=== PATIENT | female | born 1940 | race Caucasian/White ===

== ENCOUNTER 2024-06-07 13:17 | Observation (INO) | payer OTHER ==
[2024-06-07 15:12] LABS: ABSOLUTE IMMATURE GRANULOCYTES 0.05 x10^3/uL (0.0-0.031); BASOPHILS # 0.03 x10^3/uL (0.01-0.08); EOSINOPHILS # 0.06 x10^3/uL (0.04-0.36); HEMATOCRIT 31.6 % (34.1-44.9); HEMOGLOBIN 9.7 g/dL (11.2-15.7); MCHC 30.7 g/dl (32.2-35.5); MEAN CELL VOLUME 65.2 fl (79.4-94.8); MONOCYTE # 0.53 x10^3/uL (0.24-0.86); MONOCYTE % 8.4 % (4.7-12.5); RDW 16.6 % (12.5-17.0)
[2024-06-07 15:27] LABS: POTASSIUM 4.2 mmol/L (3.5-5.1)
[2024-06-07 15:30] LABS: CALCIUM 9.3 mg/dL (8.5-10.1)
[2024-06-07 15:31] LABS: BLOOD UREA NITROGEN 34.3 mg/dL (7-18); MAGNESIUM 2.3 mg/dL (1.8-2.4)
[2024-06-07 15:34] LABS: CREATININE 0.6 mg/dL (0.55-1.3)
[2024-06-07 15:35] LABS: BILIRUBIN,TOTAL 1.3 mg/dL (0.2-1)
[2024-06-07 15:36] LABS: TOT PROT 7.5 g/dl (6.4-8.2)
[2024-06-07] MEDS ORDERED: HALOPERIDOL LACTATE 5 MG/ML ONE (16:05)
[2024-06-07] MEDS: LACTATED RINGERS SOLUTION 1000 ML INFUS.BAG IV ONE (16:13)
[2024-06-07] MEDS: HALOPERIDOL LACTATE 5 MG/ML IM ONE (16:13)
[2024-06-07] MEDS: HALOPERIDOL LACTATE 5 MG/ML IVPUSH ONE (16:14)
[2024-06-07 19:19] VITALS: BMI 17.3
[2024-06-07] MEDS: QUEtiapine FUMARATE 25 MG TABLET PO SCH (21:39)
[2024-06-08 00:14] LABS: EPI CELLS 2 /uL (0-25.1); HYALINE CASTS 0 /uL (0-3.1); URINE APPEARANCE CLEAR; URINE BACTERIA 33 /uL (0-1359); URINE BILIRUBIN NEGATIVE (NEGATIVE); URINE COLOR YELLOW; URINE GLUCOSE (UA) NEGATIVE (NEGATIVE); URINE KETONE NEGATIVE (NEGATIVE); URINE LEUK ESTERASE TRACE (NEGATIVE); URINE NITRITE NEGATIVE (NEGATIVE); URINE PROTEIN NEGATIVE (NEGATIVE); URINE RBC 17 /uL (0-23.9); URINE UROBILINOGEN 0.2 mg/dL (0.2-1.0); URINE WBC 22 /uL (0-25.8)
[2024-06-08 09:01] LABS: CALCIUM 9.2 mg/dL (8.5-10.1)
[2024-06-08 09:02] LABS: ALBUMIN 3.5 g/dl (3.4-5.0); BLOOD UREA NITROGEN 25.1 mg/dL (7-18)
[2024-06-08 09:03] LABS: BILIRUBIN,TOTAL 1.3 mg/dL (0.2-1)
[2024-06-08 09:04] LABS: TOT PROT 6.5 g/dl (6.4-8.2)
[2024-06-08 09:05] LABS: CREATININE 0.6 mg/dL (0.55-1.3)
[2024-06-08 09:18] LABS: ABSOLUTE IMMATURE GRANULOCYTES 0.04 x10^3/uL (0.0-0.031); BASOPHILS # 0.02 x10^3/uL (0.01-0.08); EOSINOPHIL % 1.3 % (0.7-5.8); EOSINOPHILS # 0.06 x10^3/uL (0.04-0.36); HEMATOCRIT 28.4 % (34.1-44.9); HEMOGLOBIN 8.9 g/dL (11.2-15.7); MCHC 31.3 g/dl (32.2-35.5); MEAN CELL VOLUME 64.8 fl (79.4-94.8); MONOCYTE # 0.48 x10^3/uL (0.24-0.86); MONOCYTE % 10.5 % (4.7-12.5); RDW 16.2 % (12.5-17.0)
[2024-06-08 13:08] LABS: ABSOLUTE IMMATURE GRANULOCYTES 0.03 x10^3/uL (0.0-0.031); BASOPHILS # 0.04 x10^3/uL (0.01-0.08); EOSINOPHIL % 0.9 % (0.7-5.8); EOSINOPHILS # 0.05 x10^3/uL (0.04-0.36); HEMATOCRIT 29.5 % (34.1-44.9); HEMOGLOBIN 9.1 g/dL (11.2-15.7); MCHC 30.8 g/dl (32.2-35.5); MONOCYTE # 0.47 x10^3/uL (0.24-0.86); MONOCYTE % 8.7 % (4.7-12.5); RDW 16.3 % (12.5-17.0)
[2024-06-08] MEDS: DONEPEZIL HCL 5 MG TABLET (FP) PO SCH (21:30)
[2024-06-09] MEDS ORDERED: LORazepam 2 MG/ML SDV VIAL IVPUSH PRN (09:29)
[2024-06-09 09:46] VITALS: BP 141/56; PULSE 66; RESP 16; TEMP 97.9
[2024-06-09] MEDS ORDERED: LORazepam 0.5 MG TABLET PO PRN (11:17)
[2024-06-09] MEDS: IRON SUCROSE INJECTION 200 MG in SODIUM CHLORIDE 100 ML IVPB ONE (12:41)
== END 2024-06-09 13:45 ==
LOC: JER 13:17 → INTOOBSV 14:29 → UNDOADMOB 14:29 → JERBED 14:29 → J5S 17:59
PROVIDERS: ADMIT Internal Medicine; ATTEND Internal Medicine
PROC: 3E0233Z Introduction of Anti-inflammatory into Muscle, Percutaneous Approach (ICD-10-PCS; principal; 2024-06-07)
PROC: 3E0337Z Introduction of Electrolytic and Water Balance Substance into Peripheral Vein, Percutaneous Approach (ICD-10-PCS; 2024-06-07)
DX: Z74.1 Need for assistance with personal care (principal); Z75.1 Person awaiting admission to adequate facility elsewhere; G30.9 Alzheimer's disease, unspecified; F02.80 Dementia in other diseases classified elsewhere, unspecified severity, without behavioral disturbance, psychotic disturbance, mood disturbance, and anxiety; D64.9 Anemia, unspecified; R26.81 Unsteadiness on feet
CPT/HCPCS: 0241U-QW; 36415; 70551-TC; 71045-TC-FY; 80053; 81003; 81401; 82172; 82550; 82607; 82728; 83540; 83550; 83735; 84439; 84443; 84466; 84484; 85025; 85032; 86480; 86780; 87086; 93005; 93010; 96360; 96372; 97116-GP; 97161-GP; 99285-25; G0378